=== PATIENT | male | born 2000 | race Hispanic/Latino ===

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

== ENCOUNTER 2022-02-19 13:07 | Emergency (ER) | payer OTHER, SELFPAY ==
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
[2022-02-19 13:20] VITALS: BP 133/76; PULSE 75; RESP 16; TEMP 36.4; O2SAT 100
== END 2022-02-19 14:20 | disposition home or self-care (01) ==
PROVIDERS: Emergency Provider Nurse Practitioner
DX: S20.20XA Contusion of thorax, unspecified, initial encounter (principal); V43.52XA Car driver injured in collision with other type car in traffic accident, initial encounter; S39.012A Strain of muscle, fascia and tendon of lower back, initial encounter; S16.1XXA Strain of muscle, fascia and tendon at neck level, initial encounter
CPT/HCPCS: 71101; 72050; 72100; 99214; G0463

== ENCOUNTER 2023-03-05 19:05 | Emergency (ER) | payer OTHER, SELFPAY ==
[2023-03-05 19:14] VITALS: BP 128/68; PULSE 94; RESP 16; TEMP 37.3; O2SAT 99
--- NOTE | 2023-03-05 19:20 | ED.WOUNDLAC ---
HPI - Wound/Laceration General Chief Complaint: Wound/Laceration Stated Complaint: laceration on left leg Time Seen by Provider: 03/05/23 19:21 Source: patient, RN notes reviewed and old records reviewed Mode of arrival: ambulatory Limitations: no limitations History of Present Illness HPI narrative: 22-year-old male presents to the [facility] with a laceration, superficial to the left lower with leg that occurred over 24 hours ago. Patient is up-to-date on his tetanus. Related Data Home Medications Medication Instructions Recorded Confirmed No Home Medications 03/05/23 03/05/23 Allergies Allergy/AdvReac Type Severity Reaction Status Date / Time No Known Allergies Allergy Verified 02/19/22 13:12 Review of Systems Review of Systems: All systems reviewed & are unremarkable except as noted in HPI and below Constitutional: Constitutional: Reports no additional constitutional complaints Eyes: Eyes: Reports no additional eye complaints ENT: Reports system reviewed and no additional complaints, except as documented Cardiovascular: Cardiovascular: Reports no additional cardiovascular complaints, Denies chest pain and Denies dyspnea Respiratory: Respiratory: Reports no additional respiratory complaints, Denies chest congestion, Denies cough and Denies dyspnea Gastrointestinal: Gastrointestinal: Reports no additional gastrointestinal complaints, Denies abdominal pain, Denies nausea and Denies vomiting Musculoskeletal: Musculoskeletal: Reports no additional musculoskeletal complaints Integumentary/Breasts: Skin/Breast: Reports as per HPI and Reports wounds Neurologic: Reports system reviewed and no additional complaints, except as documented Psychiatric: Psychiatric: Reports no additional psychiatric complaints Allergic/Immunologic: Allergic/Immunologic: Reports no additional allergic/immunologic complaints PMFSH Family History Family History Other No active medical problems Social History Social History Smoking status: Never smoker Living arrangements: with family Occupation/Education: student Gender identity (if verbalized by the patient): Male Comments At the time of my signature, I reviewed and agree with the nursing past medical, surgical, social, and family history. There is no relevant family history pertinent to the patient complaint. Exam Const: General: cooperative, healthy appearing, comfortable, no acute distress, well developed, alert and well nourished Nutritional Appearance: well nourished Orientation/consciousness: patient oriented x3 Limitations: no limitations HENMT: Head: normal to inspection Ears: hearing grossly normal bilaterally and external ears normal Face/Nose/Sinus: Normal external nose present, Normal nares present, Normal nasal mucous membranes and turbinates present and normal facial exam Face and sinus: normal facial exam Eyes: General: appearance normal, both eyes and all related structures Alignment and Position: alignment normal Periorbital: periorbital findings normal Pupils: Equal, round and reactive pupils present EOM: EOMs intact bilaterally Neck: Neck: normal visual inspection, full ROM, no lymphadenopathy and no meningeal signs Chest: Chest palpation & inspection: normal inspection of the chest Resp: Effort & Inspection: normal respiratory effort and able to speak in complete sentences Cardio: Rate: regular rate Rhythm: regular rhythm Back/Spine/Pelvis: Cervical Spine: cervical ROM normal Thoracic/Lumbar Spine: No thoracic spinal tenderness Skin: General skin exam: normal color and no rashes or lesions noted Lesions: no lesions Rashes: no rashes Wounds: no wounds Full body images: 1. Multiple skin tears caused by a a weed whacker. Total wound with multiple skin tears measuring 5 x 2 cm. New bleeding. No fluctuance. No signs of
== END 2023-03-05 19:30 | disposition home or self-care (01) ==
PROVIDERS: Emergency Provider Nurse Practitioner
DX: S70.312A Abrasion, left thigh, initial encounter (principal); W29.8XXA Contact with other powered hand tools and household machinery, initial encounter
CPT/HCPCS: 99212; G0463

== ENCOUNTER 2023-12-13 16:30 | Emergency (ER) | payer OTHER, SELFPAY ==
--- NOTE | ~2023-12-13 | XR_ITS ---
XR ankle LT min 3V 12/13/2023 16:58 INDICATION: Left ankle pain PROCEDURE: 4 views left ankle COMPARISON: 01/20/2018 FINDINGS: Fracture, dislocation or subluxation is not identified. The soft tissues appear within norm al limits. No foreign bodies are identified. IMPRESSION: 1: NO ACUTE BONE OR JOINT ABNORMALITY IDENTIFIED. Reviewed, dictated and finalized at location A.
--- NOTE | 2023-12-13 16:33 | ED.LOWEXIN ---
HPI - Extremity Injury (Lower) General Chief Complaint: Extremity Injury, Lower Stated Complaint: Left Ankle Irritation Time Seen by Provider: 12/13/23 16:32 Source: patient Mode of arrival: ambulatory Limitations: no limitations History of Present Illness HPI Narrative: Gerson is a 23-year-old male patient presenting to the clinic today with complaints of left ankle pain. He reports is walking today and he rolled his left ankle and felt a pop. Is having pain to the lateral ankle. Related Data Home Medications Medication Instructions Recorded Confirmed No Home Medications 03/05/23 12/13/23 Allergies Allergy/AdvReac Type Severity Reaction Status Date / Time No Known Allergies Allergy Verified 12/13/23 16:54 Review of Systems Review of Systems: Pertinent positives per HPI. Patient denies any fever, chills, rash, headache, visual changes, dizziness, cough, runny nose, sore throat, shortness of breath, chest pain, palpitations, nausea, vomiting, diarrhea, constipation, abdominal pain, or any urinary issues. [facility] Family History Family History Other No active medical problems Social History Social History Smoking status: Never smoker Living arrangements: with family Occupation/Education: student Gender identity (if verbalized by the patient): Male Comments At the time of my signature, I reviewed and agree with the nursing past medical, surgical, social, and family history. There is no relevant family history pertinent to the patient complaint. Exam Narrative: General: Well-developed, well nourished, in no apparent distress Head: Normocephalic, atraumatic. Cardio: Regular rate and rhythm, s1 and s2 normal, no murmur appreciated. Resp: Clear to auscultation bilaterally, no rhonchi, rales, wheezing or rubs. Musculoskeletal: No deformity, tender to palpation over the left lateral ankle, pain with valgus and varus testing as well as dorsal flexion and plantar flexion against resistance, grossly normal range of motion, muscle strength strong and equal, peripheral pulse strong, no edema, no cyanosis, normal gait and station Course Course Emergency Course: Portions of this record may have been created with voice recognition software. Level of Care: Express Care Visit Vital Signs Vital signs: Vital signs reviewed MDM - Extremity Injury (Lower) MDM Narrative Medical decision making narrative: At the time of visit patient is resting comfortably on the exam table. Patient appears to be nontoxic. Diagnostics: Ankle x-rays negative for any sign of fracture or malalignment. Plan: I suspect patient has a ankle sprain. Supportive measures were discussed with the patient and they voiced understanding discharge instructions and agrees to treatment plan. Return precautions reviewed Differential Diagnosis Differential diagnosis: Likely ankle sprain and strain and ankle fracture Discharge Plan Discharge Clinical Impression: Left ankle sprain Qualifiers: Encounter type: initial encounter Involved ligament of ankle: calcaneofibular ligament Qualified Code(s): S93.412A - Sprain of calcaneofibular ligament of left ankle, initial encounter Patient Disposition: Home, Self-Care Condition: Stable Instructions: Antibiotic Form, Ankle Sprain (ED) Additional Instructions: Rest, ice, elevate, and wear maisha wrap as directed Tylenol/motrin for pain as discussed. Gradually bear weight No running or sports until healed. Follow up with your PCP if symptoms persist more than 1 week. Prescriptions: No Action No Home Medications Follow-up/Referrals: UNKNOWN,DOCTOR [Non-Staff] - Time of Disposition: 17:06 Quality NIHSS Nursing Documentation ED NIHSS nursing documentation: reviewed/agree
[2023-12-13 16:47] VITALS: BP 127/67; PULSE 76; RESP 16; TEMP 37.1; O2SAT 98
== END 2023-12-13 17:15 | disposition home or self-care (01) ==
PROVIDERS: Emergency Provider Nurse Practitioner Family
DX: S93.402A Sprain of unspecified ligament of left ankle, initial encounter (principal); X50.9XXA Other and unspecified overexertion or strenuous movements or postures, initial encounter; Y93.01 Activity, walking, marching and hiking
CPT/HCPCS: 73610; 99213; G0463

== ENCOUNTER 2024-01-30 14:36 | Emergency (ER) | payer OTHER, SELFPAY ==
[2024-01-30 14:45] VITALS: BP 131/69; PULSE 107; RESP 20; TEMP 37.1; O2SAT 98
--- NOTE | 2024-01-30 14:47 | ED.GENADULT ---
HPI - General Adult General Chief complaint: Skin/Abscess/Foreign Body Stated complaint: Allergic Reaction Time Seen by Provider: 01/30/24 14:55 Source: patient, RN notes reviewed and old records reviewed Mode of arrival: ambulatory Limitations: no limitations History of Present Illness HPI narrative: y23 year old male who presents to [facility] care with complaints of allergic reaction' that started about 1 week ago with red itchy rash noted to bilateral forearms. 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 He also has similar rash noted to right and left forearm which are itchy. Patient denies any difficulty swallowing or any difficulty with his breathing. Patient reports that he has applied some anti itch ointment to rash only. MD complaint: rash on bilateral arm and abrasion left upper arm Onset (ago): week(s) (1week) Location: left, right and upper extremity Severity: mild Treatments prior to arrival: other (anti itch ointment) Related Data Allergies Allergy/AdvReac Type Severity Reaction Status Date / Time No Known Allergies Allergy Verified 01/30/24 14:37 Review of Systems Review of Systems: CONSTITUTIONAL: Denies fever, chills, or sweats. CARDIOVASCULAR: Denies chest pain, palpitations, or edema. RESPIRATORY: Denies cough or dyspnea. SKIN: Reports scratch to his left upper arm from plant with red raised rash along area, also similar appearing rash to bilateral forearms which itch. MUSCULOSKELETAL: Denies joint pain or myalgia. NEUROLOGIC: Denies headache, numbness, or weakness. All systems reviewed & are unremarkable except as noted in HPI and below PMFSH Past Medical History Medical History (Updated 01/31/24 @ 11:20 by Carli Last NP) Fracture of left forearm with internal fixation HSV-2 (herpes simplex virus 2) infection Surgical History Surgical History (Updated 01/31/24 @ 11:17 by Carli Last NP) Hx of appendectomy Family History Family History Other No active medical problems Social History Social History (Updated 01/31/24 @ 11:20 by Carli Last NP) Smoking status: Never smoker Alcohol intake: never Substance use type: marijuana Living arrangements: with family Occupation/Education: student Gender identity (if verbalized by the patient): Male Comments At time of signature, agree with nursing past medical, surgical, social and family history. There is no relevant family history pertinent to the presenting complaint Exam Narrative: GENERAL: Well-appearing, well-nourished, and in no acute distress. HEAD: Normocephalic, atraumatic. EYES: PERRLA, conjunctivae clear, and EOMI. ENT: Mucous membranes moist. Oropharynx without edema, erythema or lesions. NECK: Supple. No lymphadenopathy CHEST: Clear to auscultation. No respiratory distress.SAO2 98% on room air HEART: Regular rate and rhythm. SKIN: Warm, dry.? Patches of red raised itchy rash to bilateral forearm and left uper arm, 14cm red raised scratch to upper left forearm NEURO:? Alert and oriented x3. PSYCH: Normal mood and affect Course Course Emergency Course: Patient is aware of diagnosis, understands and agrees to treatment plan.? Anticipatory guidance given.? Patient agrees to follow-up as directed and is aware of reasons to seek care at the emergency department. Portions of this record may have been created with voice recognition software Level of Care: Express Care Visit Vital Signs Vital signs: Vital Signs Temperature 37.1 C 01/30/24 14:45 Pulse Rate 107 H 01/30/24 14:45 Respiratory Rate 20 01/30/24 14:45 Blood Pressure 131/69 01/30/24 14:45 Pulse Oximetry 98 01/30/24 14:45 Temperature 37.1 C 01/30/24 14:45 Pulse Rate 107 H
== END 2024-01-30 15:15 | disposition home or self-care (01) ==
PROVIDERS: Emergency Provider Registered Nurse
DX: L25.5 Unspecified contact dermatitis due to plants, except food (principal)
CPT/HCPCS: 99213; G0463

== ENCOUNTER 2025-09-05 16:34 | Emergency (ER) | payer OTHER, SELFPAY ==
[2025-09-05] VITALS (8 sets, daily range): BP systolic 112–151; BP diastolic 56–100; PULSE 76–121; RESP 16–23; TEMP 37.5–39.2; O2SAT 97–99
--- NOTE | ~2025-09-05 | XR_ITS ---
EXAMINATION: XR chest 1V portable COMPARISON: No comparisons available. HISTORY: cough FINDINGS: The lungs are clear, no effusion. No pneumothorax. Heart is normal size. Mediastinal and hilar contours are within normal limits. Bony thorax no acute abnormality. Miscellaneous: None Impression: No acute cardiopulmonary abnormality. Reviewed, dictated and finalized at location P. ADJUSTMENT INSTRUCTOR Impression: No acute cardiopulmonary abnormality.
--- NOTE | 2025-09-05 16:41 | ECG_ITS ---
Test Date: 2025-09-05 16:47:47 Measurements Intervals [place] Rate: 115 P: 32 IA: 148 QRS: 95 QRSD: 86 T: 9 QT: 294 QTc: 407 Interpretive Statements SINUS TACHYCARDIA RIGHT AXIS DEVIATION ABNORMAL ECG No previous ECG available for comparison Electronically Signed On 09-05-2025 19:35:07 FIGHT MANAGER by Missael Grant D.O.
[2025-09-05 17:07] LABS: Hematocrit 45.7 % (42.0-52.0); Hemoglobin 16.1 g/dL (14.0-18.0); Immature Granulocyte Percent A 0.4 % (0-0.5); Lymphocytes Absolute Auto 1.44 K/mm3 (0.9-3.2); Mean Corpuscular HGB Conc 35.2 g/dl (32-36); Mean Corpuscular Hemoglobin 30.5 pg (26-34); Mean Corpuscular Volume 86.6 fl (80-100); Nucleated Red Blood Cells Absolute Auto 0.000 K/mm3 (0.0-0.012); Nucleated Red Blood Cells Perc 0.0 % (0.0-0.2); Platelet Count Result 262 k/mm3 (150-375); Red Blood Count 5.28 M/mm3 (4.6-6.20); White Blood Count 9.9 K/mm3 (4.5-10.0)
[2025-09-05] MEDS: IBUPROFEN 600 MG TABLET PO (17:07)
[2025-09-05] MEDS: ACETAMINOPHEN 500 MG TABLET 1000 MG PO (17:07)
[2025-09-05] MEDS: LACTATED RINGERS 1,000 ML 999 ML IV CONT ×2 (17:07→19:12)
--- NOTE | 2025-09-05 17:09 | ED_ITS ---
HPI - Weakness General Chief complaint: Weakness Stated complaint: fever, decreased appetite, weak, dyspnea, cough Time Seen by Provider: 09/05/25 16:44 History of Present Illness HPI Narrative: For last few days, patient started off with a cough, and then started having headache and body aches, having trouble keeping anything down, noticed he had a fever and came in today. Nobody else is. Related Data Allergies Allergy/AdvReac Type Severity Reaction Status Date / Time No Known Allergies Allergy Verified 09/05/25 16:52 Review of Systems 2 Review of Systems: All systems reviewed & are unremarkable except as noted in HPI and below PMFSH Past Medical History Medical History (Updated 09/05/25 @ 18:38 by Shana Werner MD) HSV-2 (herpes simplex virus 2) infection Fracture of left forearm with internal fixation Surgical History Surgical History (Updated 01/31/24 @ 11:17 by Carli Last APRN) Hx of appendectomy Family History Family History Other No active medical problems Social History Social History (Updated 01/31/24 @ 11:20 by Carli Last APRN) Smoking status: Never smoker Alcohol intake: never Substance use type: marijuana Living arrangements: with family Occupation/Education: student Gender identity (if verbalized by the patient): Male Exam 2 Narrative: EXAMINATION OF ORGAN SYSTEMS/BODY AREAS: Constitutional: Vital signs per nursing GENERAL:[No acute distress, non-toxic appearing.] HEAD: Normal with no signs of head trauma. EYES: EOMI, conjunctiva normal ENT: No trismus, no tonsillar swelling or exudates NECK: No rigidity or meningismus LUNGS: Nonlabored breathing. Clear to auscultation bilaterally HEART: Tachycardic ABD: [Soft], [nontender to palpation] EXT: Normal range of motion SKIN: [No rashes or lesions.] NEURO: [Alert. No gross focal sensory or strength deficits.] Ambulating with normal steady gait, speaking with clear speech PSYCH: Normal affect Course Vital Signs Vital signs: Vital Signs Temperature 102 F H 09/05/25 16:40 Pulse Rate 121 H 09/05/25 16:40 Respiratory Rate 16 09/05/25 16:40 Blood Pressure 143/84 H 09/05/25 16:40 Pulse Oximetry 97 09/05/25 16:40 Oxygen Delivery Room Air 09/05/25 16:40 Temperature 102.6 F H 09/05/25 16:52 Pulse Rate 113 H 09/05/25 17:12 Respiratory Rate 23 H 09/05/25 17:06 Blood Pressure 145/84 H 09/05/25 17:06 Pulse Oximetry 99 09/05/25 17:08 Oxygen Delivery Room Air 09/05/25 17:08 MDM MDM Narrative Medical decision making narrative: ED COURSE AND MEDICAL DECISION MAKING: This 24 year old patient presents with symptoms most suggestive of viral upper respiratory tract infection. Lungs are clear bilaterally without any respiratory distress or accessory muscle use. He is tachycardic and febrile here. Patient is treated symptomatically with IV fluids, Tylenol, ibuprofen.? On reevaluation, he is improved; heart rate is now 87, oxygenating 99% on room air, pressure 122/75, respiratory rate 12, in no distress. I did let him know he tested positive for flu and his liver enzymes are elevated he needs follow-up with his PCP. He will be discharged home in stable condition with expectant management. Return precautions were provided. Differential Diagnosis Differential Diagnosis: Viral syndrome, dehydration, very unlikely meningitis without neck stiffness, pneumonia, etc. Lab Data 09/05/25 17:02 09/05/25 17:02 Labs: Lab Results 09/05/25 09/05/25 Range/Units 17:02 17:52 WBC 9.9 (4.5-10.0) K/mm3 RBC 5.28 (4.6-6.20) M/mm3 Hgb 16.1 (14.0-18.0) g/dL Hct 45.7 (42.0-52.0) % MCV 86.6 (80-100) fl MCH 30.5 (26-34) pg MCHC 35.2 (32-36) g/dl RDW 12.3 (11.5-14.5) % Plt Count 262 (150-375) k/mm3 MPV 9.4 (7.4-10.4) fl Immature Gran % (Auto) 0.4 (0-0.5) % Neut % (Auto) 73.4 H (45.5-73.1) % Lymph % (Auto) 14.6 L (18.3-44.2) % Walker % (Auto) 11.1 H (2.6-8.5) % Eos % (Auto) 0.2 (0-4.4) % Baso % (Auto) 0.3 (0.2-1.2) % Lymph # (Auto) 1.44 (0.9-3.2) K/mm3 Walker # (Auto) 1.1 H (0.1-0.6) K/mm3 Eos # (Auto) 0.0 (0-0.3) K/mm3 Baso # (Auto) 0.0 (0.0-0.1) K/mm3 Abs Immat Gran (auto) 0.04 H (0.00-0.031) K/mm3 Absolute Neuts (auto) 7.3 H (1.3-6.7) K/mm3 Absolute Nucleated RBC 0.000 (0.0-0.012) K/mm3 Nucleated RBC % 0.0 (0.0-0.2) % Sodium 135 L (137-145) mmol/L Potassium 3.6 (3.4-5.0) mmol/L Chloride 102 (98-107) mmol/L Carbon Dioxide 23 (22-30) mmol/L Anion Gap 10 (4-12) mmol/L BUN 11 (9-20) mg/dL Creatinine 0.95 (0.7-1.3) mg/dL Estim Creat Clear Calc 119 ml/min Estimated GFR > 60 (59 - ) Glucose 135 H (65-110) mg/dL Lactic Acid 1.2 (0.7-2.0) mmol/L Calcium 9.4 (8.4-10.2) mg/dL Total Bilirubin 0.9 (0.2-1.3) mg/dL AST 133 H (17-59) U/L ALT 244 H (6-50) U/L Alkaline Phosphatase 69 (38-126) U/L Total Protein 8.7 H (6.3-8.2) g/dL Albumin 5.1 (3.5-5.1) g/dL Influenza A (RT-PCR) Positive A (Negative) Influenza B (RT-PCR) Negative (Negative) RSV (RT-PCR) Negative (Negative) SARS-CoV-2 RNA (RT-PCR) Negative (Negative) Imaging Data Radiologist's impression: ITS Impressions Chest X-Ray 09/05/25 17:09 Impression: No acute cardiopulmonary abnormality. Discharge Plan Discharge Clinical Impression: Transaminitis, Flu Patient Disposition: Home Condition: Stable Instructions: Influenza (ED) Additional Instructions: You did test positive for the flu. Keep hydrated, take ibuprofen and Tylenol for your symptoms. Your liver enzymes are elevated, make sure that you follow- up with your doctor for recheck to make sure it resolved. Patient Language: [place] Prescriptions: New ondansetron 4 mg tablet,disintegrating 4 mg PO Q8H PRN (Reason: nausea and vomiting) Qty: 10 0RF fluticasone propionate [Allergy Relief (fluticasone)] 50 mcg/actuation spray,suspension 1 spray intranasal DAILY Qty: 16 0RF Rx Instructions: administer into each nostril acetaminophen 500 mg capsule 500 mg PO Q6H PRN (Reason: fever or pain) Qty: 30 0RF No Action cetirizine [Zyrtec] 10 mg tablet 10 mg PO DAILY Qty: 14 0RF famotidine [Pepcid] 20 mg tablet 20 mg PO DAILY Qty: 14 0RF triamcinolone acetonide 0.1 % ointment 1 applic topical BID Qty: 80 0RF Rx Instructions: apply to rash never apply this cream to face prednisone 20 mg tablet 20 mg PO DAILY Qty: 21 0RF Rx Instructions: 6 tabs day 1, 5 tabs day 2, 4 tabs day 3,3 tabs day 4, 2 tabs day 5,1 tab day 6 Follow-up/Referrals: PHYSICIAN,MOTOR CARRIER INSPECTOR [Primary Care Provider, Internal Medicine]
[2025-09-05 17:22] LABS: Alanine Aminotransferase 244 U/L (6-50); Albumin Level 5.1 g/dL (3.5-5.1); Alkaline Phosphatase 69 U/L (38-126); Anion Gap 10 mmol/L (4-12); Aspartate Amino Transferase 133 U/L (17-59); Bilirubin,Total 0.9 mg/dL (0.2-1.3); Blood Urea Nitrogen 11 mg/dL (9-20); Calcium 9.4 mg/dL (8.4-10.2); Carbon Dioxide 23 mmol/L (22-30); Chloride 102 mmol/L (98-107); Estimated CRCL calculation 119 ml/min; Estimated Glomerular Filt Rate > 60; Glucose 135 mg/dL (65-110); Potassium 3.6 mmol/L (3.4-5.0); Sodium 135 mmol/L (137-145); Total Protein 8.7 g/dL (6.3-8.2)
[2025-09-05 18:33] LABS: Influenza A QL RT-PCR Positive (Negative); Influenza B QL RT-PCR Negative (Negative); RSV RNA, RT-PCR Negative (Negative); SARS-CoV-2 RNA PCR Negative (Negative)
== END 2025-09-05 19:54 | disposition home or self-care (01) ==
PROVIDERS: Emergency Provider Emergency Medicine
DX: R74.01 Elevation of levels of liver transaminase levels (principal); J10.1 Influenza due to other identified influenza virus with other respiratory manifestations; R00.0 Tachycardia, unspecified
CPT/HCPCS: 36415; 71045; 80053; 83605; 85025; 87637; 93005; 96360; 96361; 99284; A9270; J7120